=== PATIENT | male | born 1970 | race Caucasian/White ===

== ENCOUNTER 2018-03-19 12:18 | Emergency (ER) | payer OTHER | END 2018-03-19 18:39 | disposition home or self-care (01) | LOC: FTE 12:18 | DX: Z02.9 Encounter for administrative examinations, unspecified (principal) | CPT/HCPCS: 99282; Z7502 ==

== ENCOUNTER 2018-03-22 20:03 | Inpatient (IN) | payer OTHER ==
[2018-03-22] MEDS: ASPIRIN 81 MG TAB PO (20:20)
[2018-03-22 20:26] LABS: ADD MAN DIFF? NO
[2018-03-22 20:28] LABS: WHITE BLOOD COUNT 14.1 10^3/ul (4.8-10.8)
[2018-03-22 20:28] LABS: BASOPHIL # 0.1 10^3/ul (0.0-0.1); BASOPHILS % 0.7 % (0.0-2.0); EOSINOPHILS # 0.2 10^3/ul (0.0-0.5); EOSINOPHILS % 1.5 % (0.0-7.0); HEMATOCRIT 45.1 % (42.0-52.0); HEMOGLOBIN 14.7 g/dl (14.0-18.0); LYMPHOCYTES # 3.2 10^3/ul (0.8-2.9); LYMPHOCYTES % 22.6 % (15.0-51.0); MEAN CORPUSCULAR HEMOGLOBIN 28.9 pg (29.0-33.0); MEAN CORPUSCULAR HGB CONC 32.6 g/dl (32.0-37.0); MEAN CORPUSCULAR VOLUME 88.6 fl (82.0-101.0); MEAN PLATELET VOLUME 10.9 fl (7.4-10.4); MONOCYTE # 0.9 10^3/ul (0.3-0.9); MONOCYTES % 6.6 % (0.0-11.0); NEUTROPHIL # 9.4 10^3/ul (1.6-7.5); NEUTROPHILS % 66.4 % (39.0-77.0); PLATELET COUNT 252 10^3/UL (140-415); RED BLOOD COUNT 5.09 10^6/ul (4.70-6.10); RED CELL DISTRIBUTION WIDTH 14.6 % (11.5-14.5)
[2018-03-22] MEDS ORDERED: NITROGLYCERIN (SL) 0.4 MG TAB SL ×2 (20:30→22:30)
[2018-03-22] MEDS: NITROGLYCERIN 2% 1 GM OINT PKT TD (20:31)
[2018-03-22 20:44] LABS: ANION GAP 20 (8-16); BLOOD UREA NITROGEN 19 mg/dl (7-20); CALCIUM 9.4 mg/dl (8.4-10.2); CARBON DIOXIDE 23 mmol/L (21-31); CHLORIDE 103 mmol/L (97-110); CREATININE 1.23 mg/dl (0.61-1.24); GLUCOSE 120 mg/dl (70-220); POTASSIUM 3.9 mmol/L (3.5-5.1); SODIUM 142 mmol/L (135-144)
[2018-03-22 21:03] LABS: TROPONIN-I < 0.012 ng/ml (0.000-0.120)
[2018-03-22] MEDS: FUROSEMIDE 40 MG INJ IV (21:48)
[2018-03-22] MEDS ORDERED: ONDANSETRON 4 MG INJ IV ×2 (22:00→22:30)
[2018-03-22] MEDS ORDERED: ACETAMINOPHEN 325 MG TAB PO (22:00)
[2018-03-22 23:12] LABS: B-TYPE NATRIURETIC PEPTIDE 23 PG/ML (0-125)
[2018-03-23] MEDS: ATENOLOL 25 MG TAB PO ×2 (00:30→08:36)
[2018-03-23] MEDS ORDERED: ALBUTEROL/IPRATROPIUM (NEB) 3 ML AMP HHN (00:30)
[2018-03-23] MEDS ORDERED: LEVALBUTEROL (NEB) 1.25 MG/0.5 ML AMP HHN (00:30)
[2018-03-23 00:56] LABS: ADD UMIC NO; UR ASCORBIC ACID NEGATIVE (NEGATIVE); UR BILIRUBIN (Dip) NEGATIVE (NEGATIVE); UR BLOOD (Dip) NEGATIVE (NEGATIVE); UR CLARITY CLEAR (CLEAR); UR COLOR YELLOW (YELLOW); UR GLUCOSE (Dip) NEGATIVE (NEGATIVE); UR KETONES (Dip) TRACE mg/dL (NEGATIVE); UR LEUKOCYTE ESTERASE (Dip) NEGATIVE Leu/ul (NEGATIVE); UR NITRITE (Dip) NEGATIVE (NEGATIVE); UR SPECIFIC GRAVITY (Dip) 1.012 (1.003-1.030); UR TOTAL PROTEIN (Dip) NEGATIVE (NEGATIVE); UR UROBILINOGEN (Dip) NEGATIVE (NEGATIVE)
[2018-03-23 01:43] LABS: ETHANOL < 10.0 mg/dl
[2018-03-23 02:03] LABS: BARBITURATES NEGATIVE (NEGATIVE); BENZODIAZEPINES NEGATIVE (NEGATIVE); CANNABINOIDS NEGATIVE (NEGATIVE); COCAINE NEGATIVE (NEGATIVE); OPIATES NEGATIVE (NEGATIVE)
[2018-03-23 02:04] LABS: AMPHETAMINE/METHAMPHETAMINE POSITIVE (NEGATIVE)
[2018-03-23 05:58] LABS: ADD MAN DIFF? NO
[2018-03-23 06:07] LABS: WHITE BLOOD COUNT 13.3 10^3/ul (4.8-10.8)
[2018-03-23 06:07] LABS: BASOPHIL # 0.1 10^3/ul (0.0-0.1); BASOPHILS % 0.5 % (0.0-2.0); EOSINOPHILS # 0.2 10^3/ul (0.0-0.5); EOSINOPHILS % 1.6 % (0.0-7.0); HEMATOCRIT 43.2 % (42.0-52.0); HEMOGLOBIN 14.1 g/dl (14.0-18.0); LYMPHOCYTES # 2.3 10^3/ul (0.8-2.9); MEAN CORPUSCULAR HEMOGLOBIN 29.2 pg (29.0-33.0); MEAN CORPUSCULAR HGB CONC 32.6 g/dl (32.0-37.0); MEAN CORPUSCULAR VOLUME 89.4 fl (82.0-101.0); MEAN PLATELET VOLUME 10.8 fl (7.4-10.4); MONOCYTE # 0.9 10^3/ul (0.3-0.9); MONOCYTES % 6.8 % (0.0-11.0); NEUTROPHIL # 9.6 10^3/ul (1.6-7.5); NEUTROPHILS % 72.4 % (39.0-77.0); PLATELET COUNT 204 10^3/UL (140-415); RED BLOOD COUNT 4.83 10^6/ul (4.70-6.10); RED CELL DISTRIBUTION WIDTH 14.7 % (11.5-14.5)
[2018-03-23 06:31] LABS: CREATINE KINASE 468 IU/L (23-200)
[2018-03-23 06:39] LABS: ALANINE AMINOTRANSFERASE 39 IU/L (13-69); ALBUMIN 3.7 g/dl (3.3-4.9); ALKALINE PHOSPHATASE 96 IU/L (42-121); ANION GAP 11 (8-16); ASPARTATE AMINO TRANSFERASE 31 IU/L (15-46); BILIRUBIN,INDIRECT 0.4 mg/dl (0-1.1); BILIRUBIN,TOTAL 0.4 mg/dl (0.2-1.3); BLOOD UREA NITROGEN 18 mg/dl (7-20); CALCIUM 8.4 mg/dl (8.4-10.2); CARBON DIOXIDE 31 mmol/L (21-31); CHLORIDE 104 mmol/L (97-110); CHOL/HDL RATIO 3.2 RATIO; CHOLESTEROL 147 mg/dl (100-200); CREATININE 1.07 mg/dl (0.61-1.24); GLUCOSE 118 mg/dl (70-220); HDL CHOLESTEROL 45 mg/dl (27-67); LDL CHOLESTEROL,CALCULATED 84 mg/dl; POTASSIUM 4.2 mmol/L (3.5-5.1); SODIUM 142 mmol/L (135-144); TOTAL PROTEIN 7.4 g/dl (6.1-8.1); TRIGLYCERIDES 89 mg/dl (0-149)
[2018-03-23 06:47] LABS: CK INDEX 0.7
[2018-03-23 06:52] LABS: TROPONIN-I < 0.012 ng/ml (0.000-0.120)
[2018-03-23 07:55] LABS: HEMOGLOBIN A1C 5.9 % (0-5.9)
[2018-03-23] MEDS: TOPIRAMATE 25 MG TAB PO (08:35)
[2018-03-23] MEDS: ASPIRIN (EC) 81 MG TAB PO (08:37)
[2018-03-23] MEDS: HYDROCHLOROTHIAZIDE 25 MG TAB PO (08:37)
[2018-03-23] MEDS: SERTRALINE 50 MG TAB PO (08:38)
[2018-03-23] MEDS: LISINOPRIL 20 MG TAB PO (08:38)
[2018-03-23] MEDS: ARIPIPRAZOLE 10 MG TAB PO (11:17)
[2018-03-23] MEDS: PANTOPRAZOLE (EC) 40 MG TAB PO (11:17)
[2018-03-23 11:30] LABS: TROPONIN-I < 0.012 ng/ml (0.000-0.120)
[2018-03-23] MEDS: SUCRALFATE (100 MG/ML) 10ML CUP PO ×3 (13:27→21:00)
[2018-03-23] MEDS: HYDROmorphONE 0.5 MG/0.5 ML SYG IV (13:27)
[2018-03-23 14:10] LABS: TROPONIN-I < 0.012 ng/ml (0.000-0.120)
[2018-03-23] MEDS: GABAPENTIN 300 MG CAP PO (21:00)
[2018-03-24 05:30] LABS: ADD MAN DIFF? NO
[2018-03-24 05:41] LABS: BASOPHIL # 0.1 10^3/ul (0.0-0.1); BASOPHILS % 0.6 % (0.0-2.0); EOSINOPHILS # 0.4 10^3/ul (0.0-0.5); EOSINOPHILS % 2.6 % (0.0-7.0); HEMATOCRIT 45.3 % (42.0-52.0); HEMOGLOBIN 14.6 g/dl (14.0-18.0); LYMPHOCYTES # 2.2 10^3/ul (0.8-2.9); LYMPHOCYTES % 16.1 % (15.0-51.0); MEAN CORPUSCULAR HEMOGLOBIN 29.4 pg (29.0-33.0); MEAN CORPUSCULAR HGB CONC 32.2 g/dl (32.0-37.0); MEAN CORPUSCULAR VOLUME 91.1 fl (82.0-101.0); MONOCYTE # 0.8 10^3/ul (0.3-0.9); NEUTROPHIL # 9.9 10^3/ul (1.6-7.5); NEUTROPHILS % 73.4 % (39.0-77.0); PLATELET COUNT 213 10^3/UL (140-415); RED BLOOD COUNT 4.97 10^6/ul (4.70-6.10); RED CELL DISTRIBUTION WIDTH 14.9 % (11.5-14.5)
[2018-03-24 05:41] LABS: WHITE BLOOD COUNT 13.4 10^3/ul (4.8-10.8)
[2018-03-24 06:12] LABS: ANION GAP 12 (8-16); BLOOD UREA NITROGEN 17 mg/dl (7-20); CALCIUM 8.8 mg/dl (8.4-10.2); CARBON DIOXIDE 35 mmol/L (21-31); CHLORIDE 103 mmol/L (97-110); GLUCOSE 110 mg/dl (70-220); MAGNESIUM 2.2 mg/dl (1.7-2.5); PHOSPHORUS 3.6 mg/dl (2.5-4.9); POTASSIUM 4.5 mmol/L (3.5-5.1); SODIUM 145 mmol/L (135-144)
[2018-03-24] MEDS: PANTOPRAZOLE (EC) 40 MG TAB PO (06:33)
[2018-03-24] MEDS: ASPIRIN (EC) 81 MG TAB PO (08:13)
[2018-03-24] MEDS: LISINOPRIL 20 MG TAB PO (08:13)
[2018-03-24] MEDS: ARIPIPRAZOLE 10 MG TAB PO (08:14)
[2018-03-24] MEDS: HYDROCHLOROTHIAZIDE 25 MG TAB PO (08:15)
[2018-03-24] MEDS: TOPIRAMATE 25 MG TAB PO (08:15)
[2018-03-24] MEDS: ATENOLOL 25 MG TAB PO (08:16)
[2018-03-24] MEDS: SUCRALFATE (100 MG/ML) 10ML CUP PO ×4 (08:17→20:32)
[2018-03-24] MEDS: SERTRALINE 50 MG TAB PO (08:17)
[2018-03-24] MEDS: ACETAMINOPHEN 325 MG TAB PO (11:37)
[2018-03-24] MEDS ORDERED: HYDROmorphONE 2 MG TAB PO (17:00)
[2018-03-24] MEDS: GABAPENTIN 300 MG CAP PO (20:32)
[2018-03-24] MEDS: BUDESONIDE (NEB) 0.5MG/2ML AMP HHN (21:03)
[2018-03-24] MEDS: ALBUTEROL/IPRATROPIUM (NEB) 3 ML AMP HHN (21:03)
[2018-03-25 05:18] LABS: ADD MAN DIFF? NO
[2018-03-25 05:19] LABS: WHITE BLOOD COUNT 12.1 10^3/ul (4.8-10.8)
[2018-03-25 05:19] LABS: BASOPHIL # 0.1 10^3/ul (0.0-0.1); BASOPHILS % 0.6 % (0.0-2.0); EOSINOPHILS # 0.4 10^3/ul (0.0-0.5); HEMATOCRIT 45.4 % (42.0-52.0); HEMOGLOBIN 14.3 g/dl (14.0-18.0); LYMPHOCYTES # 2.3 10^3/ul (0.8-2.9); MEAN CORPUSCULAR HEMOGLOBIN 28.6 pg (29.0-33.0); MEAN CORPUSCULAR HGB CONC 31.5 g/dl (32.0-37.0); MEAN CORPUSCULAR VOLUME 90.8 fl (82.0-101.0); MEAN PLATELET VOLUME 11.4 fl (7.4-10.4); MONOCYTE # 0.7 10^3/ul (0.3-0.9); NEUTROPHIL # 8.5 10^3/ul (1.6-7.5); NEUTROPHILS % 69.9 % (39.0-77.0); PLATELET COUNT 220 10^3/UL (140-415); RED CELL DISTRIBUTION WIDTH 14.8 % (11.5-14.5)
[2018-03-25] MEDS: PANTOPRAZOLE (EC) 40 MG TAB PO (05:53)
[2018-03-25 06:26] LABS: ANION GAP 10 (8-16); BLOOD UREA NITROGEN 20 mg/dl (7-20); CALCIUM 8.8 mg/dl (8.4-10.2); CARBON DIOXIDE 32 mmol/L (21-31); CHLORIDE 104 mmol/L (97-110); CREATININE 1.04 mg/dl (0.61-1.24); GLUCOSE 109 mg/dl (70-220); MAGNESIUM 2.3 mg/dl (1.7-2.5); PHOSPHORUS 3.6 mg/dl (2.5-4.9); POTASSIUM 3.9 mmol/L (3.5-5.1); SODIUM 142 mmol/L (135-144)
[2018-03-25] MEDS: SERTRALINE 50 MG TAB PO (08:33)
[2018-03-25] MEDS: ASPIRIN (EC) 81 MG TAB PO (08:33)
[2018-03-25] MEDS: SUCRALFATE (100 MG/ML) 10ML CUP PO ×4 (08:33→22:05)
[2018-03-25] MEDS: HYDROCHLOROTHIAZIDE 25 MG TAB PO (08:33)
[2018-03-25] MEDS: ARIPIPRAZOLE 10 MG TAB PO (08:33)
[2018-03-25] MEDS: TOPIRAMATE 25 MG TAB PO (08:33)
[2018-03-25] MEDS: LISINOPRIL 20 MG TAB PO (08:34)
[2018-03-25] MEDS: ATENOLOL 25 MG TAB PO (08:34)
[2018-03-25] MEDS: ALBUTEROL/IPRATROPIUM (NEB) 3 ML AMP HHN (08:39)
[2018-03-25] MEDS: BUDESONIDE (NEB) 0.5MG/2ML AMP HHN (08:45)
[2018-03-25] MEDS: AZITHROMYCIN 250 MG TAB PO (13:44)
[2018-03-25] MEDS: TIOTROPIUM 18 MCG CAPSULE INHA DEV INH (13:44)
[2018-03-25] MEDS: predniSONE 20 MG TAB PO (13:44)
[2018-03-25] MEDS: FLUTICASONE/VILANTEROL 100-25 INH (13:44)
[2018-03-25] MEDS: LORAZEPAM 2 MG INJ IV ×2 (14:18→22:06)
[2018-03-25] MEDS: GABAPENTIN 300 MG CAP PO (22:05)
[2018-03-26] MEDS: PANTOPRAZOLE (EC) 40 MG TAB PO (05:47)
[2018-03-26] MEDS: GUAIFENESIN/CODEINE 5ML CUP PO ×2 (05:49→21:06)
[2018-03-26 08:27] LABS: ADD MAN DIFF? NO
[2018-03-26 08:30] LABS: WHITE BLOOD COUNT 13.8 10^3/ul (4.8-10.8)
[2018-03-26 08:30] LABS: BASOPHIL # 0.1 10^3/ul (0.0-0.1); BASOPHILS % 0.4 % (0.0-2.0); EOSINOPHILS # 0.1 10^3/ul (0.0-0.5); EOSINOPHILS % 0.4 % (0.0-7.0); HEMATOCRIT 46.5 % (42.0-52.0); LYMPHOCYTES # 2.2 10^3/ul (0.8-2.9); LYMPHOCYTES % 15.8 % (15.0-51.0); MEAN CORPUSCULAR HEMOGLOBIN 28.8 pg (29.0-33.0); MEAN CORPUSCULAR HGB CONC 32.3 g/dl (32.0-37.0); MEAN CORPUSCULAR VOLUME 89.3 fl (82.0-101.0); MEAN PLATELET VOLUME 11.5 fl (7.4-10.4); MONOCYTE # 0.6 10^3/ul (0.3-0.9); NEUTROPHIL # 10.8 10^3/ul (1.6-7.5); NEUTROPHILS % 78.2 % (39.0-77.0); PLATELET COUNT 215 10^3/UL (140-415); RED BLOOD COUNT 5.21 10^6/ul (4.70-6.10); RED CELL DISTRIBUTION WIDTH 14.5 % (11.5-14.5)
[2018-03-26] MEDS: ATENOLOL 25 MG TAB PO (08:37)
[2018-03-26] MEDS: SUCRALFATE (100 MG/ML) 10ML CUP PO ×4 (08:37→21:06)
[2018-03-26] MEDS: LISINOPRIL 20 MG TAB PO (08:37)
[2018-03-26] MEDS: SERTRALINE 50 MG TAB PO (08:37)
[2018-03-26] MEDS: AZITHROMYCIN 250 MG TAB PO (08:37)
[2018-03-26] MEDS: ARIPIPRAZOLE 10 MG TAB PO (08:38)
[2018-03-26] MEDS: TOPIRAMATE 25 MG TAB PO (08:38)
[2018-03-26] MEDS: HYDROCHLOROTHIAZIDE 25 MG TAB PO (08:38)
[2018-03-26] MEDS: ASPIRIN (EC) 81 MG TAB PO (08:38)
[2018-03-26] MEDS: predniSONE 20 MG TAB PO (08:38)
[2018-03-26 08:58] LABS: ANION GAP 14 (8-16); BLOOD UREA NITROGEN 15 mg/dl (7-20); CALCIUM 9.2 mg/dl (8.4-10.2); CARBON DIOXIDE 31 mmol/L (21-31); CHLORIDE 103 mmol/L (97-110); CREATININE 1.01 mg/dl (0.61-1.24); GLUCOSE 101 mg/dl (70-220); MAGNESIUM 2.1 mg/dl (1.7-2.5); PHOSPHORUS 3.8 mg/dl (2.5-4.9); POTASSIUM 4.3 mmol/L (3.5-5.1); SODIUM 144 mmol/L (135-144)
[2018-03-26] MEDS: TIOTROPIUM 18 MCG CAPSULE INHA DEV INH (09:18)
[2018-03-26] MEDS: FLUTICASONE/VILANTEROL 100-25 INH (09:19)
[2018-03-26] MEDS: LORAZEPAM 2 MG INJ IV (13:08)
[2018-03-26] MEDS: ALBUTEROL/IPRATROPIUM (NEB) 3 ML AMP HHN ×2 (15:30→20:00)
[2018-03-26] MEDS: BUDESONIDE (NEB) 0.5MG/2ML AMP HHN (20:00)
[2018-03-26] MEDS: GABAPENTIN 300 MG CAP PO (21:06)
[2018-03-26] MEDS: ENOXAPARIN 40 MG/0.4 ML SYG SC (22:52)
[2018-03-27] MEDS: ALBUTEROL/IPRATROPIUM (NEB) 3 ML AMP HHN ×4 (02:00→20:50)
[2018-03-27] MEDS: PANTOPRAZOLE (EC) 40 MG TAB PO (06:17)
[2018-03-27] MEDS: BUDESONIDE (NEB) 0.5MG/2ML AMP HHN ×2 (08:26→20:56)
[2018-03-27 08:49] LABS: ADD MAN DIFF? NO
[2018-03-27 08:52] LABS: BASOPHIL # 0.1 10^3/ul (0.0-0.1); BASOPHILS % 0.8 % (0.0-2.0); EOSINOPHILS # 0.1 10^3/ul (0.0-0.5); EOSINOPHILS % 0.9 % (0.0-7.0); HEMATOCRIT 46.8 % (42.0-52.0); HEMOGLOBIN 15.3 g/dl (14.0-18.0); LYMPHOCYTES # 2.7 10^3/ul (0.8-2.9); LYMPHOCYTES % 20.7 % (15.0-51.0); MEAN CORPUSCULAR HEMOGLOBIN 29.3 pg (29.0-33.0); MEAN CORPUSCULAR HGB CONC 32.7 g/dl (32.0-37.0); MEAN CORPUSCULAR VOLUME 89.7 fl (82.0-101.0); MEAN PLATELET VOLUME 11.7 fl (7.4-10.4); MONOCYTE # 0.8 10^3/ul (0.3-0.9); MONOCYTES % 6.3 % (0.0-11.0); NEUTROPHIL # 9.3 10^3/ul (1.6-7.5); NEUTROPHILS % 69.8 % (39.0-77.0); PLATELET COUNT 227 10^3/UL (140-415); RED BLOOD COUNT 5.22 10^6/ul (4.70-6.10); RED CELL DISTRIBUTION WIDTH 14.4 % (11.5-14.5)
[2018-03-27 08:52] LABS: WHITE BLOOD COUNT 13.3 10^3/ul (4.8-10.8)
[2018-03-27] MEDS: SERTRALINE 50 MG TAB PO (08:54)
[2018-03-27] MEDS: TOPIRAMATE 25 MG TAB PO (08:54)
[2018-03-27] MEDS: ASPIRIN (EC) 81 MG TAB PO (08:54)
[2018-03-27] MEDS: SUCRALFATE (100 MG/ML) 10ML CUP PO ×4 (08:54→20:46)
[2018-03-27] MEDS: HYDROCHLOROTHIAZIDE 25 MG TAB PO (08:54)
[2018-03-27] MEDS: ATENOLOL 25 MG TAB PO (08:55)
[2018-03-27] MEDS: predniSONE 20 MG TAB PO (08:55)
[2018-03-27] MEDS: ARIPIPRAZOLE 10 MG TAB PO (08:55)
[2018-03-27] MEDS: LISINOPRIL 20 MG TAB PO (08:55)
[2018-03-27] MEDS: AZITHROMYCIN 250 MG TAB PO (08:58)
[2018-03-27] MEDS: ENOXAPARIN 40 MG/0.4 ML SYG SC (09:07)
[2018-03-27 09:24] LABS: ANION GAP 13 (8-16); BLOOD UREA NITROGEN 23 mg/dl (7-20); CALCIUM 9.1 mg/dl (8.4-10.2); CARBON DIOXIDE 30 mmol/L (21-31); CHLORIDE 104 mmol/L (97-110); CREATININE 1.13 mg/dl (0.61-1.24); GLUCOSE 95 mg/dl (70-220); MAGNESIUM 2.2 mg/dl (1.7-2.5); PHOSPHORUS 3.2 mg/dl (2.5-4.9); POTASSIUM 3.6 mmol/L (3.5-5.1); SODIUM 143 mmol/L (135-144)
[2018-03-27] MEDS: LORAZEPAM 2 MG INJ IV (17:54)
[2018-03-27] MEDS: METHYLPREDNISOLONE 40 MG INJ IV (20:46)
[2018-03-27] MEDS: GABAPENTIN 300 MG CAP PO (20:47)
[2018-03-28] MEDS: ALBUTEROL/IPRATROPIUM (NEB) 3 ML AMP HHN ×4 (01:19→20:00)
[2018-03-28] MEDS: PANTOPRAZOLE (EC) 40 MG TAB PO (06:05)
[2018-03-28 06:14] LABS: ADD MAN DIFF? NO
[2018-03-28 06:19] LABS: BASOPHILS % 0.2 % (0.0-2.0); HEMATOCRIT 46.8 % (42.0-52.0); HEMOGLOBIN 15.4 g/dl (14.0-18.0); LYMPHOCYTES # 1.9 10^3/ul (0.8-2.9); LYMPHOCYTES % 10.3 % (15.0-51.0); MEAN CORPUSCULAR HEMOGLOBIN 29.1 pg (29.0-33.0); MEAN CORPUSCULAR HGB CONC 32.9 g/dl (32.0-37.0); MEAN CORPUSCULAR VOLUME 88.3 fl (82.0-101.0); MEAN PLATELET VOLUME 11.3 fl (7.4-10.4); MONOCYTE # 0.5 10^3/ul (0.3-0.9); MONOCYTES % 2.9 % (0.0-11.0); NEUTROPHIL # 15.6 10^3/ul (1.6-7.5); NEUTROPHILS % 85.6 % (39.0-77.0); PLATELET COUNT 230 10^3/UL (140-415); RED CELL DISTRIBUTION WIDTH 14.4 % (11.5-14.5)
[2018-03-28 06:19] LABS: WHITE BLOOD COUNT 18.2 10^3/ul (4.8-10.8)
[2018-03-28 07:01] LABS: ANION GAP 15 (8-16); BLOOD UREA NITROGEN 26 mg/dl (7-20); CALCIUM 9.4 mg/dl (8.4-10.2); CARBON DIOXIDE 28 mmol/L (21-31); CHLORIDE 102 mmol/L (97-110); CREATININE 1.22 mg/dl (0.61-1.24); GLUCOSE 122 mg/dl (70-220); MAGNESIUM 2.2 mg/dl (1.7-2.5); PHOSPHORUS 4.7 mg/dl (2.5-4.9); POTASSIUM 4.1 mmol/L (3.5-5.1); SODIUM 141 mmol/L (135-144)
[2018-03-28] MEDS: BUDESONIDE (NEB) 0.5MG/2ML AMP HHN ×2 (08:07→20:00)
[2018-03-28] MEDS: SUCRALFATE (100 MG/ML) 10ML CUP PO ×4 (09:04→21:10)
[2018-03-28] MEDS: SERTRALINE 50 MG TAB PO (09:05)
[2018-03-28] MEDS: TOPIRAMATE 25 MG TAB PO (09:05)
[2018-03-28] MEDS: AZITHROMYCIN 250 MG TAB PO (09:05)
[2018-03-28] MEDS: ATENOLOL 25 MG TAB PO (09:05)
[2018-03-28] MEDS: METHYLPREDNISOLONE 40 MG INJ IV ×2 (09:05→21:11)
[2018-03-28] MEDS: ARIPIPRAZOLE 10 MG TAB PO (09:05)
[2018-03-28] MEDS: LISINOPRIL 20 MG TAB PO (09:06)
[2018-03-28] MEDS: HYDROCHLOROTHIAZIDE 25 MG TAB PO (09:06)
[2018-03-28] MEDS: ENOXAPARIN 40 MG/0.4 ML SYG SC (09:06)
[2018-03-28] MEDS: ASPIRIN (EC) 81 MG TAB PO (09:06)
[2018-03-28] MEDS: GABAPENTIN 300 MG CAP PO (21:10)
[2018-03-29] MEDS: ALBUTEROL/IPRATROPIUM (NEB) 3 ML AMP HHN ×2 (01:21→07:50)
[2018-03-29] MEDS: PANTOPRAZOLE (EC) 40 MG TAB PO (05:49)
[2018-03-29 06:51] LABS: ADD MAN DIFF? NO
[2018-03-29 07:07] LABS: WHITE BLOOD COUNT 15.2 10^3/ul (4.8-10.8)
[2018-03-29 07:07] LABS: BASOPHILS % 0.2 % (0.0-2.0); HEMATOCRIT 46.8 % (42.0-52.0); HEMOGLOBIN 15.4 g/dl (14.0-18.0); LYMPHOCYTES # 1.9 10^3/ul (0.8-2.9); LYMPHOCYTES % 12.1 % (15.0-51.0); MEAN CORPUSCULAR HEMOGLOBIN 29.3 pg (29.0-33.0); MEAN CORPUSCULAR HGB CONC 32.9 g/dl (32.0-37.0); MEAN PLATELET VOLUME 11.7 fl (7.4-10.4); MONOCYTE # 0.6 10^3/ul (0.3-0.9); MONOCYTES % 3.6 % (0.0-11.0); NEUTROPHIL # 12.6 10^3/ul (1.6-7.5); PLATELET COUNT 224 10^3/UL (140-415); RED BLOOD COUNT 5.26 10^6/ul (4.70-6.10); RED CELL DISTRIBUTION WIDTH 14.4 % (11.5-14.5)
[2018-03-29 07:25] LABS: ANION GAP 10 (8-16); BLOOD UREA NITROGEN 29 mg/dl (7-20); CALCIUM 9.2 mg/dl (8.4-10.2); CARBON DIOXIDE 29 mmol/L (21-31); CHLORIDE 104 mmol/L (97-110); GLUCOSE 122 mg/dl (70-220); MAGNESIUM 2.2 mg/dl (1.7-2.5); PHOSPHORUS 4.1 mg/dl (2.5-4.9); POTASSIUM 3.9 mmol/L (3.5-5.1); SODIUM 139 mmol/L (135-144)
[2018-03-29] MEDS: AZITHROMYCIN 250 MG TAB PO (09:03)
[2018-03-29] MEDS: ASPIRIN (EC) 81 MG TAB PO (09:03)
[2018-03-29] MEDS: SUCRALFATE (100 MG/ML) 10ML CUP PO ×4 (09:03→21:00)
[2018-03-29] MEDS: SERTRALINE 50 MG TAB PO (09:04)
[2018-03-29] MEDS: LISINOPRIL 20 MG TAB PO (09:04)
[2018-03-29] MEDS: HYDROCHLOROTHIAZIDE 25 MG TAB PO (09:04)
[2018-03-29] MEDS: TOPIRAMATE 25 MG TAB PO (09:04)
[2018-03-29] MEDS: ATENOLOL 25 MG TAB PO (09:05)
[2018-03-29] MEDS: METHYLPREDNISOLONE 40 MG INJ IV (09:05)
[2018-03-29] MEDS: ARIPIPRAZOLE 10 MG TAB PO (09:05)
[2018-03-29] MEDS: ENOXAPARIN 40 MG/0.4 ML SYG SC (09:11)
[2018-03-29] MEDS: FLUTICASONE/VILANTEROL 100-25 INH (12:10)
[2018-03-29] MEDS: GABAPENTIN 300 MG CAP PO (21:00)
[2018-03-29] MEDS: LORAZEPAM 2 MG INJ IV (21:09)
[2018-03-30] MEDS: PANTOPRAZOLE (EC) 40 MG TAB PO (05:33)
[2018-03-30] MEDS: TOPIRAMATE 25 MG TAB PO (08:45)
[2018-03-30] MEDS: SUCRALFATE (100 MG/ML) 10ML CUP PO ×4 (08:45→21:52)
[2018-03-30] MEDS: TIOTROPIUM 18 MCG CAPSULE INHA DEV INH (08:45)
[2018-03-30] MEDS: predniSONE 20 MG TAB PO (08:45)
[2018-03-30] MEDS: ARIPIPRAZOLE 10 MG TAB PO (08:45)
[2018-03-30] MEDS: FLUTICASONE/VILANTEROL 100-25 INH (08:45)
[2018-03-30] MEDS: ASPIRIN (EC) 81 MG TAB PO (08:45)
[2018-03-30] MEDS: LISINOPRIL 20 MG TAB PO (08:46)
[2018-03-30] MEDS: ATENOLOL 25 MG TAB PO (08:46)
[2018-03-30] MEDS: ENOXAPARIN 40 MG/0.4 ML SYG SC (08:47)
[2018-03-30] MEDS: SERTRALINE 50 MG TAB PO (08:47)
[2018-03-30] MEDS: HYDROCHLOROTHIAZIDE 25 MG TAB PO (08:48)
[2018-03-30] MEDS: SOD CHLORIDE 0.9% 500 ML IV (18:05)
[2018-03-30] MEDS: GABAPENTIN 300 MG CAP PO (21:52)
[2018-03-31] MEDS: PANTOPRAZOLE (EC) 40 MG TAB PO (05:31)
[2018-03-31 08:26] LABS: AADO2 Arterial 33.2 mmHg (7.0-24.0); Allen Test ACCEPTAB; Arterial Base Excess 1.7 mmol/L (-3.0-3); Arterial Blood Gas Oxygen Sat 90.7 mmHG (95.0-98.0); Arterial COHb 0.7 % (0.0-3.0); Arterial Fraction of Oxyhgb 89.9 % (93.0-99.0); Arterial HCO3 27.6 mmol/L (22.0-26.0); Arterial MetHb 0.2 % (0.0-1.5); Arterial Total Hemglobin 15.9 g/dl (12.0-18.0); Arterial pCO2 47.8 mmhg (35-45); MODE ROOM AIR; Site Left Radial
[2018-03-31] MEDS: HYDROCHLOROTHIAZIDE 25 MG TAB PO (08:37)
[2018-03-31] MEDS: LISINOPRIL 20 MG TAB PO (08:37)
[2018-03-31] MEDS: TOPIRAMATE 25 MG TAB PO (08:44)
[2018-03-31] MEDS: FLUTICASONE/VILANTEROL 100-25 INH (08:44)
[2018-03-31] MEDS: TIOTROPIUM 18 MCG CAPSULE INHA DEV INH (08:44)
[2018-03-31] MEDS: SUCRALFATE (100 MG/ML) 10ML CUP PO ×4 (08:44→21:08)
[2018-03-31] MEDS: predniSONE 20 MG TAB PO (08:44)
[2018-03-31] MEDS: ARIPIPRAZOLE 10 MG TAB PO (08:44)
[2018-03-31] MEDS: ASPIRIN (EC) 81 MG TAB PO (08:44)
[2018-03-31] MEDS: ENOXAPARIN 40 MG/0.4 ML SYG SC (08:45)
[2018-03-31] MEDS: SERTRALINE 50 MG TAB PO (08:45)
[2018-03-31] MEDS ORDERED: METOPROLOL 5 MG INJ IV (16:30)
[2018-03-31] MEDS: GABAPENTIN 300 MG CAP PO (21:08)
[2018-03-31] MEDS: NACL 0.9% 3 ML SYG IV (21:18)
[2018-04-01] MEDS: PANTOPRAZOLE (EC) 40 MG TAB PO (06:23)
[2018-04-01] MEDS: LISINOPRIL 20 MG TAB PO (08:25)
[2018-04-01] MEDS: predniSONE 20 MG TAB PO (08:25)
[2018-04-01] MEDS: SUCRALFATE (100 MG/ML) 10ML CUP PO ×2 (08:25→12:20)
[2018-04-01] MEDS: ARIPIPRAZOLE 10 MG TAB PO (08:25)
[2018-04-01] MEDS: FLUTICASONE/VILANTEROL 100-25 INH (08:26)
[2018-04-01] MEDS: HYDROCHLOROTHIAZIDE 25 MG TAB PO (08:26)
[2018-04-01] MEDS: ASPIRIN (EC) 81 MG TAB PO (08:26)
[2018-04-01] MEDS: SERTRALINE 50 MG TAB PO (08:26)
[2018-04-01] MEDS: TOPIRAMATE 25 MG TAB PO (08:26)
[2018-04-01] MEDS: ENOXAPARIN 40 MG/0.4 ML SYG SC (08:36)
[2018-04-01] MEDS: TIOTROPIUM 18 MCG CAPSULE INHA DEV INH (12:20)
== END 2018-04-01 15:39 | disposition home or self-care (01) | DRG 202 ==
LOC: MS3 21:39 → MS4 03-25 16:45 → E/R 20:03
PROC: 3E0F7GC Introduction of Other Therapeutic Substance into Respiratory Tract, Via Natural or Artificial Opening (ICD-10-PCS; principal; 2018-03-24)
PROC: 3E0F73Z Introduction of Anti-inflammatory into Respiratory Tract, Via Natural or Artificial Opening (ICD-10-PCS; 2018-03-24)
DX: J40 Bronchitis, not specified as acute or chronic (principal); J96.01 Acute respiratory failure with hypoxia; Z68.43 Body mass index [BMI] 50.0-59.9, adult; E66.01 Morbid (severe) obesity due to excess calories; Z71.3 Dietary counseling and surveillance; K70.9 Alcoholic liver disease, unspecified; F15.10 Other stimulant abuse, uncomplicated; I10 Essential (primary) hypertension; I25.10 Atherosclerotic heart disease of native coronary artery without angina pectoris; F25.9 Schizoaffective disorder, unspecified; F10.20 Alcohol dependence, uncomplicated; F17.200 Nicotine dependence, unspecified, uncomplicated; D72.829 Elevated white blood cell count, unspecified; E78.5 Hyperlipidemia, unspecified; R00.1 Bradycardia, unspecified
CPT/HCPCS: 36415; 36600; 71045; 71250; 80048; 80053; 80061; 80307; 81003; 82550; 82553; 82803; 83036; 83735; 83880; 84100; 84443; 84484; 85025; 85378; 93005; 93306; 93970; 94640; 94664; 96374; 97116; 97162; 99285-25

== ENCOUNTER 2018-04-08 21:07 | Emergency (ER) | payer OTHER ==
[2018-04-08] MEDS: LORAZEPAM 2 MG INJ IM (22:05)
[2018-04-08 22:38] LABS: ADD MAN DIFF? NO
[2018-04-08 22:43] LABS: BASOPHIL # 0.1 10^3/ul (0.0-0.1); BASOPHILS % 0.4 % (0.0-2.0); EOSINOPHILS # 0.2 10^3/ul (0.0-0.5); EOSINOPHILS % 1.6 % (0.0-7.0); HEMATOCRIT 42.5 % (42.0-52.0); LYMPHOCYTES # 2.3 10^3/ul (0.8-2.9); LYMPHOCYTES % 19.6 % (15.0-51.0); MEAN CORPUSCULAR HEMOGLOBIN 29.2 pg (29.0-33.0); MEAN CORPUSCULAR HGB CONC 32.9 g/dl (32.0-37.0); MEAN CORPUSCULAR VOLUME 88.5 fl (82.0-101.0); MEAN PLATELET VOLUME 12.6 fl (7.4-10.4); MONOCYTE # 0.6 10^3/ul (0.3-0.9); MONOCYTES % 5.1 % (0.0-11.0); NEUTROPHIL # 8.7 10^3/ul (1.6-7.5); NEUTROPHILS % 72.5 % (39.0-77.0); PLATELET COUNT 193 10^3/UL (140-415); RED CELL DISTRIBUTION WIDTH 13.7 % (11.5-14.5)
[2018-04-08 23:09] LABS: ALANINE AMINOTRANSFERASE 35 IU/L (13-69); ALBUMIN/GLOBULIN RATIO 1.17; ALKALINE PHOSPHATASE 89 IU/L (42-121); ANION GAP 17 (8-16); ASPARTATE AMINO TRANSFERASE 22 IU/L (15-46); BILIRUBIN,INDIRECT 0.2 mg/dl (0-1.1); BILIRUBIN,TOTAL 0.2 mg/dl (0.2-1.3); BLOOD UREA NITROGEN 8 mg/dl (7-20); CARBON DIOXIDE 22 mmol/L (21-31); CHLORIDE 108 mmol/L (97-110); CREATININE 0.94 mg/dl (0.61-1.24); GLUCOSE 120 mg/dl (70-220); POTASSIUM 3.5 mmol/L (3.5-5.1); SODIUM 143 mmol/L (135-144); TOTAL PROTEIN 7.4 g/dl (6.1-8.1)
[2018-04-08 23:10] LABS: ACETAMINOPHEN < 10.0 ug/ml (10.0-30.0); SALICYLATE < 1.0 mg/dl (5.0-30.0)
[2018-04-08 23:22] LABS: ADD UMIC NO; UR ASCORBIC ACID NEGATIVE (NEGATIVE); UR BILIRUBIN (Dip) NEGATIVE (NEGATIVE); UR BLOOD (Dip) NEGATIVE (NEGATIVE); UR CLARITY CLEAR (CLEAR); UR COLOR STRAW (YELLOW); UR GLUCOSE (Dip) NEGATIVE (NEGATIVE); UR KETONES (Dip) NEGATIVE (NEGATIVE); UR LEUKOCYTE ESTERASE (Dip) NEGATIVE Leu/ul (NEGATIVE); UR NITRITE (Dip) NEGATIVE (NEGATIVE); UR SPECIFIC GRAVITY (Dip) 1.003 (1.003-1.030); UR TOTAL PROTEIN (Dip) NEGATIVE (NEGATIVE); UR UROBILINOGEN (Dip) NEGATIVE (NEGATIVE)
[2018-04-08 23:23] LABS: LIPASE 72 U/L (23-300)
[2018-04-08 23:42] LABS: TROPONIN-I < 0.012 ng/ml (0.000-0.120)
[2018-04-09 00:05] LABS: AMPHETAMINE/METHAMPHETAMINE NEGATIVE (NEGATIVE); BARBITURATES NEGATIVE (NEGATIVE); BENZODIAZEPINES NEGATIVE (NEGATIVE); CANNABINOIDS NEGATIVE (NEGATIVE); COCAINE NEGATIVE (NEGATIVE); OPIATES NEGATIVE (NEGATIVE)
[2018-04-09 00:09] LABS: B-TYPE NATRIURETIC PEPTIDE 22 PG/ML (0-125)
== END 2018-04-09 09:38 ==
LOC: E/R 04-09 09:38
DX: R45.851 Suicidal ideations (principal); I10 Essential (primary) hypertension; I25.10 Atherosclerotic heart disease of native coronary artery without angina pectoris; F17.210 Nicotine dependence, cigarettes, uncomplicated; Z79.82 Long term (current) use of aspirin
CPT/HCPCS: 36415; 71045; 80053; 80307; 81003; 83690; 83880; 84484; 85025; 93005; 96372; 99285-25

== ENCOUNTER 2018-12-11 19:53 | Emergency (ER) | payer OTHER ==
[2018-12-11] MEDS: OXYCODONE/ACETAMINOPHEN (5/325) TAB PO (20:36)
[2018-12-11 21:18] LABS: ADD MAN DIFF? NO
[2018-12-11 21:19] LABS: BASOPHIL # 0.1 10^3/ul (0.0-0.1); BASOPHILS % 0.5 % (0.0-2.0); EOSINOPHILS # 0.2 10^3/ul (0.0-0.5); EOSINOPHILS % 1.9 % (0.0-7.0); HEMATOCRIT 44.3 % (42.0-52.0); HEMOGLOBIN 14.4 g/dl (14.0-18.0); LYMPHOCYTES # 2.4 10^3/ul (0.8-2.9); LYMPHOCYTES % 21.4 % (15.0-51.0); MEAN CORPUSCULAR HGB CONC 32.5 g/dl (32.0-37.0); MEAN CORPUSCULAR VOLUME 89.3 fl (82.0-101.0); MEAN PLATELET VOLUME 12.3 fl (7.4-10.4); MONOCYTE # 0.8 10^3/ul (0.3-0.9); MONOCYTES % 7.2 % (0.0-11.0); NEUTROPHIL # 7.5 10^3/ul (1.6-7.5); NEUTROPHILS % 68.3 % (39.0-77.0); PLATELET COUNT 207 10^3/UL (140-415); RED BLOOD COUNT 4.96 10^6/ul (4.70-6.10); RED CELL DISTRIBUTION WIDTH 14.3 % (11.5-14.5)
[2018-12-11 21:26] LABS: ALANINE AMINOTRANSFERASE 30 IU/L (13-69); ALBUMIN 4.2 g/dl (3.3-4.9); ALBUMIN/GLOBULIN RATIO 1.27; ALKALINE PHOSPHATASE 82 IU/L (42-121); ANION GAP 9 (5-13); ASPARTATE AMINO TRANSFERASE 40 IU/L (15-46); BILIRUBIN,INDIRECT 0.1 mg/dl (0-1.1); BILIRUBIN,TOTAL 0.1 mg/dl (0.2-1.3); BLOOD UREA NITROGEN 14 mg/dl (7-20); CALCIUM 9.4 mg/dl (8.4-10.2); CARBON DIOXIDE 29 mmol/L (21-31); CHLORIDE 103 mmol/L (97-110); CREATININE 1.05 mg/dl (0.61-1.24); Estimated GFR > 60 mL/min (>60); GLUCOSE 99 mg/dl (70-220); LIPASE 32 U/L (23-300); POTASSIUM 4.2 mmol/L (3.5-5.1); SODIUM 141 mmol/L (135-144); TOTAL PROTEIN 7.5 g/dl (6.1-8.1)
[2018-12-11 21:41] LABS: B-TYPE NATRIURETIC PEPTIDE 36 PG/ML (0-125); TROPONIN-I < 0.012 ng/ml (0.000-0.120)
== END 2018-12-11 23:38 | disposition home or self-care (01) ==
LOC: E/R 19:53
DX: R07.9 Chest pain, unspecified (principal); F20.9 Schizophrenia, unspecified; I10 Essential (primary) hypertension; I25.10 Atherosclerotic heart disease of native coronary artery without angina pectoris; F17.210 Nicotine dependence, cigarettes, uncomplicated; E66.9 Obesity, unspecified; Z79.82 Long term (current) use of aspirin; Z79.84 Long term (current) use of oral hypoglycemic drugs
CPT/HCPCS: 36415; 71045; 80053; 83690; 83880; 84484; 85025; 99284-25

== ENCOUNTER 2018-12-11 23:40 | Emergency (ER) | payer OTHER ==
[2018-12-12 02:32] LABS: ETHANOL < 10.0 mg/dl (0-0); SALICYLATE < 1.0 mg/dl (5.0-30.0)
[2018-12-12 02:32] LABS: ACETAMINOPHEN < 10.0 ug/ml (10.0-30.0)
[2018-12-12 06:39] LABS: BARBITURATES Negative (NEGATIVE); BENZODIAZEPINES Negative (NEGATIVE); CANNABINOIDS Negative (NEGATIVE); COCAINE Negative (NEGATIVE); OPIATES Negative (NEGATIVE)
[2018-12-12 07:16] LABS: AMPHETAMINE/METHAMPHETAMINE POSITIVE (NEGATIVE)
== END 2018-12-12 11:15 | disposition home or self-care (01) ==
LOC: E/R 23:40
DX: F29 Unspecified psychosis not due to a substance or known physiological condition (principal); I10 Essential (primary) hypertension; I25.10 Atherosclerotic heart disease of native coronary artery without angina pectoris; F17.210 Nicotine dependence, cigarettes, uncomplicated; Z79.82 Long term (current) use of aspirin; Z79.84 Long term (current) use of oral hypoglycemic drugs
CPT/HCPCS: 80307; 82962; 93005; 99285